=== PATIENT | male | born 1965 | race American Indian/Alaskan Native ===

== ENCOUNTER 2020-04-24 17:15 | Emergency (ER) | payer SELFPAY ==
[2020-04-24 17:32] VITALS: BP 142/83
--- NOTE | 2020-04-24 18:10 | Event Note ---
ED Screening Note Date of service: 04/24/20 Time: 18:09 ED Screening Note: Patient presents with complaints of low back pain and bilateral knee pain after a slip and fall at work today Tenderness noted bilaterally to knees on exam Patient states he is having difficulty with ambulation This initial assessment/diagnostic orders/clinical plan/treatment(s) is/are subject to change based on patients health status, clinical progression and re- assessment by fellow clinical providers in the ED. Further treatment and workup at subsequent clinical providers discretion. Patient/guardian urged not to elope from the ED as their condition may be serious if not clinically assessed and managed. Initial orders include: X-rays
--- NOTE | 2020-04-24 19:02 | XRay Report ---
LUMBOSACRAL SPINE 3 VIEWS INDICATION / CLINICAL INFORMATION: Fall with low back pain. COMPARISON: None available. FINDINGS: BONES / JOINT(S): There are moderate hypertrophic changes involving the facet joints in the mid to lo wer lumbar spine bilaterally. The vertebral body heights and disc spaces are well-maintained. The ped icles are intact and the SI joints are normal. There is no evidence of fracture or subluxation. SOFT TISSUES: No significant abnormality. ADDITIONAL FINDINGS: None. Signer Name: Ronnie Guzmán MD Signed: 04/24/2020 6:57 PM Workstation Name: [id number]
--- NOTE | 2020-04-24 19:04 | XRay Report ---
BILATERAL KNEES 7 VIEWS INDICATION / CLINICAL INFORMATION: Bilateral knee pain after fall . COMPARISON: None available. FINDINGS: BONES and JOINT(S): No acute fracture or subluxation. There is moderate bilateral tricompartmental os teoarthritis, right greater than left. SOFT TISSUES: No significant abnormality. ADDITIONAL FINDINGS: None. IMPRESSION: 1. No acute findings. 2. Moderate osteoarthritis of the knees. Signer Name: Jayson Martin MD Signed: 04/24/2020 7:00 PM Workstation Name: [id number]
--- NOTE | 2020-04-24 23:21 | Emergency Department Report ---
ED Fall HPI - General Chief Complaint: Fall Stated Complaint: FALL Time Seen by Provider: 04/24/20 18:06 Source: patient Mode of arrival: Ambulatory - History of Present Illness Initial Comments: Chief complaint: "I fell at work." HPI this is a 54-year-old male presents with fall at work. 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 His legs twisted under him. He has right knee pain left knee pain. Ambulatory at the scene. Mild pain. MD Complaint: fall -: Gradual Fall From: standing Place Fall Occurred: work Loss of Consciousness: none Prolonged Down Time?: no - Related Data Previous Rx's Medication Instructions Recorded Last Taken Type Ibuprofen [Motrin 400 MG tab] 400 mg PO TID 5 Days #15 tablet 04/24/20 Unknown Rx Allergies Allergy/AdvReac Type Severity Reaction Status Date / Time No Known Allergies Allergy Unverified 04/24/20 17:25 ED Review of Systems ROS: Stated complaint: FALL Other details as noted in HPI Constitutional: denies: fever, malaise Respiratory: denies: cough Cardiovascular: denies: chest pain Gastrointestinal: denies: abdominal pain, nausea, vomiting ED Past Medical Hx - Past Medical History Previous Medical History?: Yes Additional medical history: Right knee, back and hip - Surgical History Past Surgical History?: No - Social History Smoking Status: Never Smoker Substance Use Type: None - Medications Home Medications: Home Medications Medication Instructions Recorded Confirmed Last Taken Type Ibuprofen [Motrin 400 MG tab] 400 mg PO TID 5 Days #15 tablet 04/24/20 Unknown Rx ED Physical Exam - General Limitations: No Limitations General appearance: alert, in no apparent distress - Head Head exam: Present: atraumatic, normocephalic - Eye Eye exam: Present: normal appearance - ENT ENT exam: Present: mucous membranes moist - Neck Neck exam: Present: normal inspection, full ROM - Respiratory Respiratory exam: Present: normal lung sounds bilaterally. Absent: respiratory distress, wheezes, rales, rhonchi - Cardiovascular Cardiovascular Exam: Present: regular rate, normal rhythm, normal heart sounds. Absent: systolic murmur, diastolic murmur, rubs, gallop - GI/Abdominal GI/Abdominal exam: Present: soft, normal bowel sounds. Absent: distended, tenderness, guarding, rebound - Extremities Exam Extremities exam: Present: normal inspection, full ROM. Absent: tenderness, normal capillary refill - Back Exam Back exam: Present: normal inspection, full ROM. Absent: tenderness, CVA tenderness (R) - Neurological Exam Neurological exam: Present: alert, oriented X3 - Psychiatric Psychiatric exam: Present: normal affect, normal mood - Skin Skin exam: Present: warm, dry, intact, normal color. Absent: rash ED Course Vital Signs 04/24/20 17:30 Temperature 98.2 F Pulse Rate 70 Respiratory 15 Rate Blood Pressure 142/83 O2 Sat by Pulse 99 Oximetry ED Medical Decision Making - Radiology Data Radiology results: report reviewed Bilateral knee pain after fall: Moderate osteoarthritis of the knees according to radiology impression without acute findings Lumbosacral spine 3 views no significant abnormality no evidence of acute trauma there is moderate hypertrophic changes involving the facet joints in the mid to lower spine bilaterally - Medical Decision Making Fall at work with bilateral knee pain patient has notable osteoarthritis on radiographs. Prescribed ibuprofen referred to orthopedic surgeon. No evidence of ligamentous instability or injury. Critical care attestation.: If time is entered above; I have spent that time in minutes in the direct care of this critically ill patient, excluding procedure time. ED Disposition Clinical Impression: Bilateral knee pain, Knee osteoarthritis, Fall Disposition: - TO HOME OR SELFCARE Is pt being admited?: No Does the pt Need Aspirin: No Condition: Stable Instructions: Knee Pain (ED) Prescriptions: Ibuprofen [Motrin 400 MG tab] 400 mg PO TID 5 Days #15 tablet Referrals: NOLBERTO GUIDRY MD [Staff Physician] - 3-5 Days
== END 2020-04-24 23:40 | disposition home or self-care (01) ==
LOC: ED 17:15
DX: M17.0 Bilateral primary osteoarthritis of knee (principal)
CPT/HCPCS: 72100; 99283